=== PATIENT | female | born 1985 | race Caucasian/White ===

== ENCOUNTER 2017-08-24 20:17 | Emergency (ER) | payer OTHER ==
[~2017-08-24] VITALS: Ht 170.2 cm; Wt 60.0 kg
[2017-08-24] MEDS ORDERED: IBUPROFEN 600MG TABLET PO ONE (21:30)
[2017-08-24 21:34] VITALS: BP 119/82
== END 2017-08-24 22:53 | disposition home or self-care (01) ==
LOC: ER 21:19
DX: S29.012A Strain of muscle and tendon of back wall of thorax, initial encounter (principal); R68.84 Jaw pain; Z88.2 Allergy status to sulfonamides; V43.52XA Car driver injured in collision with other type car in traffic accident, initial encounter; Y93.89 Activity, other specified; Y92.410 Unspecified street and highway as the place of occurrence of the external cause; Y99.8 Other external cause status
CPT/HCPCS: 81025; 99283